=== PATIENT | male | born 1990 | race American Indian/Alaskan Native ===

== ENCOUNTER 2021-04-10 14:34 | Emergency (ER) | payer SELFPAY ==
[2021-04-10 15:39] VITALS: BP 105/67
[2021-04-10] MEDS ORDERED: ACETAMINOPHEN 325 MG TAB PO ONE (16:00)
[2021-04-10] MEDS ORDERED: ONDANSETRON 4 MG ODT TAB PO ONE (16:00)
[2021-04-10] MEDS ORDERED: FAMOTIDINE 20 MG TAB PO ONE (16:00)
--- NOTE | 2021-04-10 16:04 | Emergency Department Report ---
ED Abdominal Pain HPI - General Chief Complaint: Chest Pain Stated Complaint: CP PUI?: No Source: patient Mode of arrival: Ambulatory Limitations: No Limitations - History of Present Illness Initial Comments: 30-year-old male presents to the ER today with complaints of "a nauseous feeling" from his upper abdominal pain into his chest and into his throat. Patient states that symptoms started this morning. He reports associated headache in decreased appetite and intermittent epigastric abdominal burning/cramping. He denies any vomiting, constipation or diarrhea, URI symptoms cough or shortness of breath, fever or chills. He states that he is never had any symptoms like this before. He states that he drinks alcohol socially. He denies any NSAID abuse. He denies any abdominal surgeries in the past. He denies any significant past medical history. MD Complaint: abdominal pain -: Gradual ED Review of Systems ROS: Stated complaint: CP Other details as noted in HPI Comment: All other systems reviewed and negative Constitutional: denies: chills, fever Eyes: denies: eye pain, eye discharge, vision change ENT: denies: ear pain, throat pain, dental pain, hearing loss, epistaxis, congestion Respiratory: denies: cough, shortness of breath, wheezing Cardiovascular: denies: palpitations, dyspnea on exertion, edema, syncope, paroxysmal nocturnal dyspnea Gastrointestinal: abdominal pain, nausea. denies: vomiting, diarrhea, constipation, hematemesis, melena, hematochezia Genitourinary: denies: urgency, dysuria, frequency, hematuria, discharge, testicular pain, testicular mass Musculoskeletal: denies: back pain, joint swelling, arthralgia Skin: denies: rash, lesions, change in color, change in hair/nails, pruritus Neurological: denies: headache, weakness, numbness, paresthesias, confusion, abnormal gait, vertigo Psychiatric: denies: anxiety, depression, auditory hallucinations, visual hallucinations, homicidal thoughts, suicidal thoughts Hematological/Lymphatic: denies: easy bleeding, easy bruising, swollen glands ED Past Medical Hx - Past Medical History Previous Medical History?: No Additional medical history: DENIES - Surgical History Past Surgical History?: Yes Additional Surgical History: hernia repair ED Physical Exam - General Limitations: No Limitations General appearance: alert, in no apparent distress - Head Head exam: Present: atraumatic, normocephalic, normal inspection - Eye Eye exam: Present: normal appearance, PERRL, EOMI Pupils: Present: normal accommodation - Neck Neck exam: Present: normal inspection, full ROM - Respiratory Respiratory exam: Present: normal lung sounds bilaterally. Absent: respiratory distress, wheezes, rales, rhonchi - Cardiovascular Cardiovascular Exam: Present: regular rate, normal rhythm, normal heart sounds - GI/Abdominal GI/Abdominal exam: Present: soft, tenderness (Mild tenderness to palpation epigastric area without any guarding or rebound.). Absent: distended - Neurological Exam Neurological exam: Present: alert, oriented X3, CN II-XII intact, normal gait - Psychiatric Psychiatric exam: Present: normal affect, normal mood - Skin Skin exam: Present: intact ED Course Vital Signs 04/10/21 04/10/21 14:52 15:38 Temperature 98.4 F 98.4 F Pulse Rate 75 72 Respiratory 16 14 Rate Blood Pressure 112/67 105/67 O2 Sat by Pulse 99 98 Oximetry ED Medical Decision Making - Lab Data Result diagrams: 04/10/21 16:06 04/10/21 16:06 - EKG Data -: EKG Interpreted by [facility] EKG shows normal: sinus rhythm Rate: normal (87) No standard instances P Waves: ROHAN - Medical Decision Making 1720: CMP unremarkable, CBC still pending, and patient was called from the waiting room to be given meds but there was no answer from patient. 1830: Patient was called again 2 more times for meds, and to review lab results but again there was no answer from patient. Patient apparently eloped without notifying myself or staff. Critical care attestation.: If time is entered above; I have spent that time in minutes in the direct care of this critically ill patient, excluding procedure time. ED Disposition Clinical Impression: Epigastric pain Disposition: 07 LEFT AWOL/ELOPED Is pt being admited?: No Condition: Stable Referrals: MD LATISHA [Other] - 3-5 Days
[2021-04-10 16:39] LABS: Alanine Aminotransferase 16 units/L (7-56); Albumin 4.4 g/dL (3.9-5); BUN/Creatinine Ratio 9; Blood Urea Nitrogen 7 mg/dL (9-20); Calcium 9.6 mg/dL (8.4-10.2); Hemolysis Index 11
[2021-04-10 17:28] LABS: Basophils % (Auto) 0.3 % (0.0-1.8); Eosinophils # (Auto) 0.1 K/mm3 (0.0-0.4); Eosinophils % (Auto) 0.8 % (0.0-4.3); Hematocrit 44.7 % (35.5-45.6); Lymphocytes # (Auto) 2.2 K/mm3 (1.2-5.4); Lymphocytes % (Auto) 25.9 % (13.4-35.0); Mean Corpuscular HGB Conc 34 % (32-34); Mean Corpuscular Volume 107 fl (84-94); Monocytes # (Auto) 0.7 K/mm3 (0.0-0.8); Monocytes % (Auto) 7.7 % (0.0-7.3); Platelet Count 255 K/mm3 (140-440); Red Blood Count 4.17 M/mm3 (3.65-5.03); Red Cell Distribution Width 12.8 % (13.2-15.2)
== END 2021-04-10 17:20 | disposition left against medical advice (07) ==
LOC: ED 14:34
DX: R10.13 Epigastric pain (principal); Z98.890 Other specified postprocedural states
CPT/HCPCS: 36415; 80053; 83690; 85025; 93005; 99283